=== PATIENT | male | born 1955 | race African-American/Black ===

== ENCOUNTER → 2017-01-01 | Outpatient (CLI) | payer BC ==
[~2017-01-01] MED LIST: AMLODIPINE BESY10 MG PO; BACTRIM DS TABL1 TA1 PO; ENALAPRIL MALEA20 MG PO; FLOMAX0.4 M1 PO; LORTAB 5/500 TA1 TA1 PO; PANCREASE PO; PHENERGAN25 MG PO; ZANAFLEX PO
--- NOTE | ~2017-01-01 | US85 ---
[facility] A Service of [facility] & [facility] RADIOLOGY TEXT RESULTS PATIENT: AMADOR BECERRA JR LOCATION: CNIV : 51 UNIT #: [id number] AGE: [address]: Paul Bearden MD SEX: M ORDER DR: [id number] [facility] [address] [place], [place] [address] [id number] O MR#: [id number] Acc #: [id number] NAME: AMADOR BECERRA : 1955 SEX: M STUDY DATE/TIME: 01/01/2017 10:51 UNIT: CNIV ROOM: STUDY DESCRIPTION: [place] [facility] Attending Physician: Paul Bearden M.D. Referring Physician: Paul Bearden M.D. Ordering Physician: Paul Bearden M.D. Primary Care Physician: Paul Bearden M.D. MEDICAL IMAGING REPORT This report is preliminary unless electronic signature is present EXAM Right lower extremity venous duplex, 01/01/2017 HISTORY Right lower extremity pain and edema for 2 months. History of previous lower extremity deep vein thrombosis. Diabetes and hypertension. Evaluate for deep vein thrombosis. TECHNIQUE Venous ultrasound examination of the right lower extremity was performed using grayscale, spectral Doppler and color flow Doppler imaging. FINDINGS The examination is negative. There is no evidence of right lower extremity deep venous thrombus from the groin to the lower calf. Visualized greater saphenous vein is also patent. IMPRESSION Negative examination. No evidence of right lower extremity deep venous thrombosis. Dictated by... Barry Li M.D. THIS IS AN ELECTRONICALLY VERIFIED REPORT Barry Li M.D. at 01/01/2017 4:52 PM NOREEN/gudelia TD: 01/01/2017 14:21 JOB #: [id number] MEDICAL IMAGING REPORT Page 1 of 1 COPY
== END | disposition home or self-care (01) ==
LOC: CNIV 10:27
DX: M79.605 Pain in left leg (principal); M79.89 Other specified soft tissue disorders
CPT/HCPCS: 93971